=== PATIENT | female | born 1995 | race Two or more races ===

== ENCOUNTER 2017-05-06 13:10 | Emergency (ER) | payer OTHER ==
[~2017-05-06] VITALS: Ht 152.4 cm; Wt 54.4 kg
--- NOTE | 2017-05-08 04:57 | Cardiology Report ---
DATE OF STUDY: May 06, 2017 DOPPLER SCAN OF LEFT LEG VEINS M-MODE: The lower extremity veins were interrogated using the duplex scanning method on the left leg. The right leg was not studied. The veins were compressible. There were no definite deep venous thrombosis. CONCLUSIONS 1. No definite deep venous thrombosis involving the left leg veins. 2. The right leg was not studied. Job#: [id number] RI cc: NINA BERMAN MD
== END 2017-05-06 16:11 | disposition home or self-care (01) ==
LOC: ER 13:10
DX: M79.662 Pain in left lower leg (principal); M25.572 Pain in left ankle and joints of left foot; S86.112A Strain of other muscle(s) and tendon(s) of posterior muscle group at lower leg level, left leg, initial encounter; R26.2 Difficulty in walking, not elsewhere classified
CPT/HCPCS: 93970; 99284